=== PATIENT | female | born 1985 | race Caucasian/White ===

== ENCOUNTER 2018-09-09 10:07 | Emergency (ER) | payer SELFPAY ==
[2018-09-09 10:12] VITALS: BP 147/78; PULSE 79; TEMP 98.4; BMI 26.6
[2018-09-09] MEDS ORDERED: diazePAM 5 MG TABLET PO ONE (10:38)
[2018-09-09] MEDS ORDERED: KETOROLAC TROMETHAMINE 30 MG/1 ML VIAL IM ONE (10:39)
--- NOTE | 2018-09-09 10:49 | PDOC ---
History of Present Illness - General Chief Complaint: Pain, Acute Stated Complaint: LEFT LEG PAIN Time Seen by Provider: 09/09/18 10:11 History Source: Patient Exam Limitations: No Limitations - History of Present Illness Initial Comments: 09/09/18 10:39 33 yo F with h/o back pain for one year here today with worsening symptoms. pt states got worse a few days ago. luis new numbness or weakness, no f/c no trauma. no new bowel or bladder incontinence, states today she couldn't get out of bed because pain was so bad. lower back, radiating down left leg to mid thigh. worse with bending and walking. no urinary complaints. lmp was 2 weeks ago. did see a spine surgeon who ordered an outpt mri which is scheduled for later september. also referred for physical therapy which she has not undergone yet. Past History - Past Medical History Allergies/Adverse Reactions: Allergies Allergy/AdvReac Type Severity Reaction Status Date / Time No Known Allergies Allergy Verified 09/09/18 10:09 Home Medications: Ambulatory Orders Diazepam [Valium] 5 mg PO Q8H PRN #15 tablet MDD 3 09/09/18 Methylprednisolone [Medrol Dose Prasanth] 4 mg PO ASDIR #21 tablet 09/09/18 Asthma: No COPD: No Diabetes: No - Immunization History Td Vaccination: Yes Immunization Up to Date: Yes - Suicide/Smoking/Psychosocial Hx Smoking Status: No Smoking History: Former smoker Years of Tobacco Use: 0 Have you smoked in the past 12 months: No Number of Cigarettes Smoked Daily: 1 If you are a former smoker, when did you quit?: 0 Cigars Per Day: 0 Information on smoking cessation initiated: No 'Breaking Loose' booklet given: 09/18/16 Hx Alcohol Use: No Drug/Substance Use Hx: No Substance Use Type: Alcohol Review of Systems - Review of Systems Constitutional: No: Chills, Diaphoresis, Fever HEENTM: No: Eye Pain Respiratory: No: Cough, Orthopnea, Shortness of Breath Cardiac (ROS): No: Chest Pain, Edema Musculoskeletal: Yes: Back Pain. No: Joint Pain Integumentary: No: Bruising, Change in Color Neurological: No: Headache, Numbness, Paresthesia All Other Systems: Reviewed and Negative *Physical Exam - Vital Signs Last Vital Signs Temp Pulse Resp BP Pulse Ox 98.4 F 79 16 147/78 100 09/09/18 10:08 09/09/18 10:08 09/09/18 10:08 09/09/18 10:08 09/09/18 10:08 - Physical Exam Comments: 09/09/18 10:42 awake alert lungs clear bilaterally heart rrr no mrg abd soft nt nd. back no midline spinal tenderness. paraspinal spasm sacral region, ttp to left. sensation intact bilat lower ext 5/5 bilat lower ext strength. df/ pf 5/5 General Appearance: No: Appropriately Dressed, Apparent Distress HEENT: negative: Normal ENT Inspection, Normal Voice Neck: positive: Trachea midline. negative: Normal Thyroid Medical Decision Making - Medical Decision Making 09/09/18 10:49 33 yo F with low back strain, radiating down left leg. normal nuerlogical exam. plan nsaids, muscle relaxants. already has outpt mri scheduled. will treat outpt with medrol dose prasanth and muscle relaxers. 09/09/18 11:53 pt states she is feeling better. ambulating without difficulty. jackie given work note. dc home. *DC/Admit/Observation/Transfer Diagnosis at time of Disposition: Low back strain - Discharge Dispostion Disposition: HOME Condition at time of disposition: Improved - Prescriptions Prescriptions: Diazepam [Valium] 5 mg PO Q8H PRN #15 tablet MDD 3 PRN Reason: Muscle Spasms Methylprednisolone [Medrol Dose Prasanth] 4 mg PO ASDIR #21 tablet - Referrals Referrals: Francis Dao MD [Staff Physician] - - Patient Instructions Printed Discharge Instructions: Managing Chronic Low Back Pain, Low Back Pain Additional Instructions: you can take valium 5 mg every 8 hrs as needed for muscle spasm, or back pain. return for sudden weakness, numbness or any concerns. you should medrol dose prasanth as prescribed. you can also take tylenol 500 mg every 6 hrs as needed for pain. follow up with your spine surgeon. you can also follow up with a nuerologist. call dr dao to schedule see referral information. you should set up your previously prescribed physical therapy. and call mri center to see if you can move up your appointment - Post Discharge Activity Forms/Work/School Notes: Back to Work
[2018-09-09] MEDS ORDERED: KETOROLAC TROMETHAMINE 30 MG/1 ML VIAL ONE (11:12)
[2018-09-09] MEDS ORDERED: diazePAM 5 MG TABLET ONE (11:12)
== END 2018-09-09 11:54 | disposition home or self-care (01) ==
LOC: FER 10:07
PROC: 3E0233Z Introduction of Anti-inflammatory into Muscle, Percutaneous Approach (ICD-10-PCS; principal; 2018-09-09)
DX: M54.5 Low back pain (principal); Z87.891 Personal history of nicotine dependence
CPT/HCPCS: 84703; 99281-25

== ENCOUNTER 2018-10-05 08:31 | Emergency (ER) | payer SELFPAY ==
[2018-10-05 08:35] VITALS: BP 130/83; PULSE 72; TEMP 97.8; BMI 26.9
--- NOTE | 2018-10-05 08:38 | PDOC ---
Attending Attestation - Resident Resident Name: Velia Baugh - ED Attending Attestation I have performed the following: I have examined & evaluated the patient, The case was reviewed & discussed with the resident, I agree w/resident's findings & plan, Exceptions are as noted - HPI HPI: 10/05/18 08:50 33y F no pmhx presents with complaint of back pain radiating to the left leg. She has been having simlar complaints for hte past few months. Was given NSAIDS , flexeril recently during an ER evaluation. The patient notes increased pain this morning, took motrin with minimal relief. No associated fever/chills, urinary or bowel incontinence, weakness/numbness/tingling, recent trauma. Pt notes she has been having chronic back pain, but has been improved with motrin. Notes pain worsend this morning where it was painful to stand up straight. Improved with sitting, keeping her L hip flexed. Denies IVDU. ddx: radiculpathy - lumbar will give flexeril pt on NSAIDS at home no red flags to sgugest cord comperssion, abcess will refer to PMD fu return precautions wer discussed - Physicial Exam PE: 10/09/18 17:06 seeabove - Medical Decision Making 10/09/18 17:06 see above
[2018-10-05] MEDS ORDERED: CYCLOBENZAPRINE HCL 10 MG TABLET (FP) PO ONE (09:17)
[2018-10-05] MEDS ORDERED: CYCLOBENZAPRINE HCL 10 MG TABLET (FP) ONE (09:24)
--- NOTE | 2018-10-05 09:26 | PDOC ---
History of Present Illness - General Chief Complaint: Back Pain Stated Complaint: BACK PAIN Time Seen by Provider: 10/05/18 08:35 History Source: Patient - History of Present Illness Initial Comments: 10/05/18 09:32 Patient is a 33 year old female with known history of intermittent low back pain since a year ago, presented today with sudden onset, sharp low back pain radiating down posteriorly to the left thigh upon waking up. Pain worsened with standing and walking, and improved with sitting. Patient took Motrin 800mg for which she reported minimal relief. Patient was seen a month ago at the ED and was discharged with NSAIDs, Valium, and medrol dose star, with instructions to follow up as outpatient. MRI was requested, but still is pending. Patient reported some improvement, but would still experience intermittent low back pain. She denies any history of trauma, fever, chills, bowel or bladder incontinence, numbness or weakness. 10/05/18 10:12 Past History - Travel Traveled outside of the country in the last 30 days: No Close contact w/someone who was outside of country & ill: No - Past Medical History Allergies/Adverse Reactions: Allergies Allergy/AdvReac Type Severity Reaction Status Date / Time No Known Allergies Allergy Verified 10/05/18 08:33 Home Medications: Ambulatory Orders Metaxalone [Skelaxin] 800 mg PO TID #15 tablet 10/05/18 Asthma: No COPD: No Diabetes: No HTN: No - Immunization History Td Vaccination: Yes Immunization Up to Date: Yes - Suicide/Smoking/Psychosocial Hx Smoking Status: No Smoking History: Never smoked Years of Tobacco Use: 0 Have you smoked in the past 12 months: No Number of Cigarettes Smoked Daily: 0 If you are a former smoker, when did you quit?: 0 Cigars Per Day: 0 Information on smoking cessation initiated: No 'Breaking Loose' booklet given: 09/18/16 Hx Alcohol Use: No Drug/Substance Use Hx: No Substance Use Type: Alcohol Review of Systems - Review of Systems Able to Perform ROS?: Yes Is the patient limited Turkish proficient: No Constitutional: No: Chills, Fever, Weakness Respiratory: No: Cough, Shortness of Breath Cardiac (ROS): No: Chest Pain, Palpitations ABD/GI: No: Abdominal Distended, Constipated, Diarrhea : No: Dysuria, Incontinence Musculoskeletal: Yes: Back Pain Neurological: No: Numbness, Tingling, Weakness *Physical Exam - Vital Signs Last Vital Signs Temp Pulse Resp BP Pulse Ox 97.8 F 72 18 130/83 100 10/05/18 08:33 10/05/18 08:33 10/05/18 08:33 10/05/18 08:33 10/05/18 08:33 - Physical Exam General Appearance: Yes: Other (Awake, alert, oriented, in no acute distress) HEENT: positive: Other (PERRLA, EOMI, no nasal congestion, moist mucous membranes) Neck: positive: Trachea midline, Supple Respiratory/Chest: positive: Lungs Clear Cardiovascular: positive: Regular Rhythm, Regular Rate, S1, S2 Vascular Pulses: Dorsalis-Pedis (R): 2+, Doralis-Pedis (L): 2+ Gastrointestinal/Abdominal: positive: Normal Bowel Sounds Extremity: positive: Normal Range of Motion Neurologic: positive: vp care management II-XII NML intact, Fully Oriented, Alert, Normal Mood/ Affect, Normal Response, Motor Strength 5/5, Other (Sensation intact) Medical Decision Making - Medical Decision Making 10/05/18 12:24 Patient is a 33 year old female with known history of intermittent low back pain since a year ago, presented today with sudden onset, sharp low back pain radiating down posteriorly to the left thigh upon waking up. Pain worsened with standing and walking, and improved with sitting. Patient took Motrin 800mg for which she reported minimal relief. Patient was seen a month ago at the ED and was discharged with NSAIDs, Valium, and medrol dose star, with instructions to follow up as outpatient. MRI was requested, but still is pending. Patient reported some improvement, but would still experience intermittent low back pain. She denies any history of trauma, fever, chills, bowel or bladder incontinence, numbness or weakness. General: awake, alert, oriented, NAD Cardio: Regular rate and rhythm, normal S1,S2, without murmurs, rubs or gallops Resp: Clear to auscultation bilaterally Neuro: +tenderness to palpation of lower back, CN II-XII intact, motor strength 5/5, sensation intact A: Low back pain likely 2/2 lumbar radiculopathy P: Metaxalone 800 mg TID for 5 days Motrin 400mg q6h Follow-up with PCP 10/05/18 12:29 *DC/Admit/Observation/Transfer Diagnosis at time of Disposition: Back pain Qualifiers: Back pain location: low back pain Chronicity: chronic Back pain laterality: left Sciatica presence: with sciatica Sciatica laterality: sciatica of left side Qualified Code(s): M54.42 - Lumbago with sciatica, left side - Discharge Dispostion Disposition: HOME Condition at time of disposition: Improved Decision to Admit order: No - Prescriptions Prescriptions: Metaxalone [Skelaxin] 800 mg PO TID #15 tablet - Referrals Referrals: [facility] [place] [facility] [Provider Group] - Patient Instructions Printed Discharge Instructions: DI for Lumbar Radiculopathy Additional Instructions: You can take Metaxalone 800mg three times a day and Motrin 400 mg every 6 hours for 3 days. Return for any worsening pain, weakness, numbness or any concerns. Follow-up with your primary care doctor. You could request for a referral for MRI and physical therapy. - Post Discharge Activity Forms/Work/School Notes: Back to Work
== END 2018-10-05 09:48 | disposition home or self-care (01) ==
LOC: JER 08:31
DX: M54.42 Lumbago with sciatica, left side (principal)
CPT/HCPCS: 99282-25

== ENCOUNTER 2021-02-03 11:10 | Emergency (ER) | payer OTHER | END 2021-02-03 12:14 | disposition home or self-care (01) | LOC: JVIRT 11:10 | DX: Z11.52 Encounter for screening for COVID-19 (principal) | CPT/HCPCS: C9803; G2251-GT; Q3014-GT; U0003 ==